=== PATIENT | male | born 1995 | race Two or more races ===

== ENCOUNTER 2016-09-08 00:46 | Emergency (ER) | payer SELFPAY ==
[~2016-09-08] VITALS: Ht 177.8 cm; Wt 87.0 kg
[2016-09-08] MEDS ORDERED: DEXAMETHASONE 10MG/ML 1ML VIAL IM ONE (04:30)
[2016-09-08 04:50] VITALS: BP 100/62
== END 2016-09-08 04:48 | disposition home or self-care (01) ==
LOC: ER 00:46
DX: T40.7X5A Adverse effect of cannabis (derivatives), initial encounter (principal); R42 Dizziness and giddiness; Y92.9 Unspecified place or not applicable
CPT/HCPCS: 93005; 96372; 99283; J1100; Z7610